=== PATIENT | female | born 1970 | race Caucasian/White ===

== ENCOUNTER 2017-05-22 08:27 | Day surgery (SDC) | payer BC ==
[2017-05-17 16:09] VITALS: BMI 26.4
[~2017-05-22 08:27] MED LIST: LACTATED RINGERS 1,000 ML IV SCH; MIDAZOLAM 2 MG/2 ML VIAL IV PRN; MORPHINE SULFATE 2 MG/ML SYRINGE IV PRN; ONDANSETRON 4 MG/2 ML VIAL IVP ONE
[2017-05-22] MEDS: SODIUM CHLORIDE 0.9% 1,000 ML IV SCH ×2 (08:57→17:09)
[2017-05-22 09:02] LABS: Basophils % (A) 0 %; Eosinophils # (A) 0.1 k/uL (0-0.7); Eosinophils % (A) 1 %; HCT 41.3 % (34.0-46.0); HGB 13.3 gm/dL (11.4-16.0); Lymphocytes # (A) 1.6 k/uL (1.0-4.8); Lymphocytes % (A) 25 %; MCH 30.9 pg (25.0-35.0); MCHC 32.3 g/dL (31.0-37.0); MCV 95.8 fL (80.0-100.0); Mean Platelet Volume 6.9; Monocytes # (A) 0.5 k/uL (0-1.0); Monocytes % (A) 8 %; Neutrophils # (A) 4.1 k/uL (1.3-7.7); Neutrophils % (A) 63 %; Platelet Count 232 k/uL (150-450); RBC 4.31 m/uL (3.80-5.40); RDW 12.2 % (11.5-15.5); WBC 6.5 k/uL (3.8-10.6)
[2017-05-22] MEDS ORDERED: IV FLUID CONTINUATION 950 ML IV ONE (09:07)
[2017-05-22 09:19] LABS: Anion Gap 13 mmol/L; Blood Urea Nitrogen 12 mg/dL (7-17); Calcium 9.8 mg/dL (8.4-10.2); Carbon Dioxide 22 mmol/L (22-30); Chloride 109 mmol/L (98-107); Glucose 93 mg/dL (74-99); Potassium 3.9 mmol/L (3.5-5.1); Sodium 144 mmol/L (137-145)
[2017-05-22] MEDS ORDERED: MIDAZOLAM 2 MG/2 ML VIAL ONE (10:37)
[2017-05-22] MEDS ORDERED: ISOPROTERENOL 250 MCG/1.25 ML SYR IV ONE (10:37)
[2017-05-22] MEDS ORDERED: diphenhydrAMINE 50 MG/ML 1 ML VIAL ONE (10:37)
[2017-05-22] MEDS ORDERED: LIDOCAINE 1% INJ 10MG/ML (20 ML MDV) ONE (10:37)
[2017-05-22] MEDS ORDERED: PROPOFOL 10 MG/ML 20 ML VIAL IV ONE (10:37)
[2017-05-22] MEDS ORDERED: KETAMINE 10 MG/ML 20 ML VIAL ONE (10:37)
[2017-05-22] MEDS ORDERED: fentaNYL (PF) 50 MCG/ML 2 ML AMP ONE (10:37)
[2017-05-22] MEDS ORDERED: LIDOCAINE 2% INJ 20 MG/ML SQ ONE ×2 (11:12→11:13)
[2017-05-22] MEDS ORDERED: HYDROcodone/APAP 5-325MG 1 EACH TAB PO PRN (13:09)
[2017-05-22] MEDS ORDERED: ACETAMINOPHEN TAB 325 MG TAB PO PRN (13:09)
--- NOTE | 2017-05-22 13:15 | P.PCN ---
Preoperative Diagnosis: Tilt table test Indication for the procedure: Recurrent presyncopal spells without palpitations Twelve-lead ECG shows sinus rhythm normal CT narrow QRS normal ST segments normal QT interval Tilt table test per protocol Baseline blood pressure 117/67 mmHg Baseline heart rate 83 beats a minute Patient was tilted upright at night was 70 per protocol within 20 minutes of upright position she had mild sinus tachycardia at 101 beats a minute and a drop in blood pressure to 90 mmHg. She felt dizzy and tingling in the hands or feet, blurring of vision and she passed out. At that time her blood pressure was unrecordable by cuff and on ClearSite it was 70 mmHg heart rate 105 beats a minute. When she was laid supine, heart rate and blood pressure normalized and she regained normal mentation Impression Neurocardiogenic response to upright tilting However the patient also complains of recurrent palpitations with presyncope that responded to Valsalva like maneuver and therefore we will also proceed with an EP study Condition: stable
[2017-05-22] MEDS ORDERED: diphenhydrAMINE 50 MG/ML 1 ML VIAL IVP ONE (13:37)
[2017-05-22] MEDS: HYDROmorphone 2 MG/ML 1 ML SYRINGE IVP ONE ×2 (13:39→13:44)
[2017-05-22] MEDS: ACETAMINOPHEN IV (For NPO) 1,000 MG in EMPTY BAG 1 BAG IVPB ONE ×2 (13:45→14:00)
--- NOTE | 2017-05-22 14:34 | CE ---
CARDIAC ELECTROPHYSIOLOGY REPORT 47-year-old female, who complained of recurrent palpitations associated with presyncope that was sensitive to Valsalva like maneuver. She was brought to the EP lab in a fasting state. Written informed consent was obtained prior to the procedure. The right groin was prepped and draped as per protocol and 3 venous sheaths were placed in the right femoral vein. Via these 3 diagnostic catheters were positioned in the right heart, later the coronary sinus was accessed and coronary sinus catheter was placed. Sinus cycle length 822 milliseconds. LA interval 140 milliseconds. QRS 91 milliseconds, QT 386 milliseconds. Baseline AH 65 milliseconds, baseline HV interval 35 milliseconds. Sinus node recovery times of 600, 500 and 400 milliseconds were 851, 1310 and 721 milliseconds respectively. AV node Wenckebach block 350 milliseconds. No slow pathway. No delta waves. VA Wenckebach block 430 milliseconds. Very short bursts of atrial tachycardia from the right atrium was induced but no sustained arrhythmias. Ventricular pacing induced this more easily than atrial pacing but later on Isuprel both atrial and ventricular pacing easily induced an atrial tachycardia. On Isuprel the sustained atrial tachycardia was easily induced. 3D mapping of the right atrium was performed. Tachycardia was mapped to the anterolateral right atrium. Pacing maneuvers determined the location of the phrenic nerve position. The tachycardia focuses just below a little anterior to this site. Successful RF ablation was performed. This area was near the edwardo terminalis. Up to 30 lynne of power was used and the tachycardia was successfully ablated at the early site with early bipolar signals and excellent unipolar signals. Following that, testing was once again performed on the high-dose Isuprel and there was no further evidence for any sustained tachycardia. RESULT: 1. Diagnostic EP study revealed focal right atrial tachycardia as the mechanism of her Valsalva sinus tachycardia that was associated with symptoms of presyncope. 2. Successful mapping and ablation of the tachycardia in the anterolateral upper right atrium close to the edwardo terminalis. Successful ablation was performed and the tachycardia was eliminated. The patient tolerated the procedure well without any acute complications. MMODL / IJN: [id number] /
[2017-05-23] MEDS: SODIUM CHLORIDE 0.9% 1,000 ML IV SCH (11:23)
[2017-05-23 11:37] VITALS: BP 102/66; PULSE 92; RESP 18; TEMP 97.7
--- NOTE | 2017-05-23 11:59 | P.DS ---
Providers Attending physician: Anderson Aparicio Primary care physician: [facility] Course: Patient is doing well. She is ambulating in the hallways. She denies any chest discomfort no dizziness lightheadedness. Vitals are stable Blood pressure 109/68 mmHg pulse rate in the 80s Afebrile Heart sounds are normal Breath sounds are clear Extremities warm no edema Impression High right atrial tachycardia Successful ablation Plan Discharge home today in follow-up with Dr. Montgomery about 2-3 weeks Plan - Discharge Summary Discharge Rx Participant: Yes New Discharge Prescriptions: Discontinued Metoprolol Tartrate [Lopressor] 12.5 mg PO BID Follow up Appointment(s)/Referral(s): Anderson Aparicio MD [STAFF PHYSICIAN] - 2 Weeks (Office will call with appointment. ) Activity/Diet/Wound Care/Special Instructions: Post EP study - Ablation instructions 1. Keep access sites dry for 2 days. 2. No heavy lifting or straining for 2 days. 3. Avoid bending the hips repeatedly for 2 days. 4. You may go up and down stairs slowly Call if the following is noted 1. Bleeding, increasing swelling or pain at the access sites. 2. Increasing chest discomfort, especially upon taking a deep breath. 3. Increasing shortness of breath, at rest or with exertion. 4. Undue cough / phlegm 5. Difficulty or pain while swallowing. 6. Pain or change in color in the extremities. 7. Fever, chills, rigors. 8. Increasing headache or neurologic symptoms. 9. Dizziness, fainting, palpitations Stop metoprolol Follow Dr. Montgomery in 2 weeks Follow-up with Dr. duval as scheduled Discharge Disposition: HOME SELF-CARE
== END 2017-05-23 14:15 | disposition home or self-care (01) ==
LOC: CATHEP 08:27 → 3OBS 12:50 → CATHEP 05-23 14:15
PROVIDERS: ATTEND Internal Medicine Clinical Cardiac Electrophysiology
DX: I47.1 Supraventricular tachycardia (principal); Z87.891 Personal history of nicotine dependence; Z79.899 Other long term (current) drug therapy; Z82.49 Family history of ischemic heart disease and other diseases of the circulatory system
CPT/HCPCS: 93623; 93613; 93660; 93653; 80048; 85025; 81025; C1894; C1769 ×2; C1730 ×2; C1732; J2001 ×2; J2250; J1200; J3010; J0131; J2704; 93620

== ENCOUNTER → 2018-09-19 | Outpatient (CLI) | payer BC ==
--- NOTE | 2018-09-20 09:13 | MM ---
Reason for exam: screening (asymptomatic). Last mammogram was performed 3 years ago. History: Patient had first child at age 37. Physical Findings: A clinical breast exam by your physician is recommended on an annual basis and results should be correlated with mammographic findings. MG Screening Mammo w CAD Bilateral CC and MLO view(s) were taken. Prior study comparison: September 23, 2015, bilateral MG screening mammo w CAD. August 29, 2012, bilateral digital screening mammo w/CAD. The breast tissue is extremely dense which could obscure a lesion on mammography. No suspicious abnormality. No significant changes when compared with prior studies. ASSESSMENT: Negative, BI-RAD 1 RECOMMENDATION: Routine screening mammogram of both breasts in 1 year.
== END | disposition home or self-care (01) ==
LOC: RADMAMWWP 11:21
PROVIDERS: ATTEND Obstetrics & Gynecology
DX: Z12.31 Encounter for screening mammogram for malignant neoplasm of breast (principal)
CPT/HCPCS: 77067

== ENCOUNTER → 2023-06-27 | Outpatient (CLI) | payer BC ==
--- NOTE | 2023-06-28 22:10 | MM ---
Reason for Exam: Screening (asymptomatic). Last mammogram was performed 4 year(s) and 9 month(s) ago. Patient History: Menarche at age 15. First Full-Term at age 37. Late child-bearing (after 29). Patient has history of breast feeding. Risk Values: Clary 5 year model risk: 1.4%. NCI Lifetime model risk: 10.4%. Prior Study Comparison: 08/29/2012 Bilateral Screening Mammogram, [facility]. 09/23/2015 Bilateral Screening Mammogram, [facility]. 09/19/2018 Bilateral Screening Mammogram, [facility]. Tissue Density: The breast tissue is extremely dense which could obscure a lesion on mammography. Findings: Analyzed By CAD. Pattern appears symmetrical and stable. No significant interval change is evident. No suspicious groups of microcalcifications, spiculated or lobular masses, architectural distortion or other secondary signs of malignancy are mammographically apparent. Overall Assessment: Benign, BI-RAD 2 Management: Screening Mammogram of both breasts in 1 year. A negative mammogram report should not preclude additional follow up of suspicious palpable abnormalities. Patient should continue monthly self breast exam. A clinical breast exam by your physician is recommended on an annual basis and results should be correlated with mammographic findings. Electronically signed and approved by: Aries Winters D.O. Radiologis
== END | disposition home or self-care (01) ==
LOC: RADMAMWWP 11:29
PROVIDERS: ATTEND Internal Medicine Geriatric Medicine
DX: Z12.31 Encounter for screening mammogram for malignant neoplasm of breast (principal)
CPT/HCPCS: 77067

== ENCOUNTER → 2023-11-01 | Outpatient (CLI) | payer BC ==
--- NOTE | 2023-11-01 10:09 | MR ---
EXAMINATION TYPE: MR iac wo/w con DATE OF EXAM: 11/01/2023 COMPARISON: None HISTORY: Tinnitus. TECHNIQUE: Multiplanar, multisequence images of the brain and brainstem is performed without and with IV contras t, utilizing 7 mL intravenous Gadavist . FINDINGS: Diffusion weighted images demonstrate no evidence of a recent infarct or other diffusion ab normality. There is no midline shift or mass effect. Ventricular size is age appropriate. Faint and scattered white matter abnormal signal is nonspecific but most typical remote microvascular ischemia. Mastoid air cells are clear. Orbits are symmetric. Minimal changes of chronic sinusitis. Midline structures demonstrate normal morphology. The craniocervical junction appears within normal limits. Post contrast images demonstrate no abnormal enhancement. The dural venous sinuses appear pa tent. No evidence of cerebellopontine angle mass or acoustic schwannoma. IMPRESSION: 1. No evidence of cerebellopontine angle mass or acoustic schwannoma. 2. Mild nonspecific white matter findings most typical of remote microvascular ischemia.
== END | disposition home or self-care (01) ==
LOC: RADMRIMAIN 08:03
PROVIDERS: ATTEND Internal Medicine Geriatric Medicine
DX: G93.89 Other specified disorders of brain (principal); H93.13 Tinnitus, bilateral
CPT/HCPCS: 70553; A9585